=== PATIENT | female | born 1940 | race Native Hawaiian/Other Pacific Islander ===

== ENCOUNTER 2018-05-30 10:59 | Outpatient (CLI) | payer OTHER ==
[2018-05-30 12:00] LABS: PLATELET COUNT 208 K/uL (152-353)
[2018-05-30 12:28] LABS: POTASSIUM 4.8 mmol/L (3.6-5.2)
== END 2018-05-30 19:53 | disposition home or self-care (01) ==
LOC: LABW 10:59
PROVIDERS: Internal Medicine
DX: E53.8 Deficiency of other specified B group vitamins (principal); I10 Essential (primary) hypertension; Z79.899 Other long term (current) drug therapy; N18.4 Chronic kidney disease, stage 4 (severe)
CPT/HCPCS: 36415; 80053; 81000; 82043; 82306; 82330; 82550; 82570; 82728; 82746; 83516; 83735; 83970; 84100; 84155; 84550; 85027; 85651; 86039; 86160; 86255; 86430